=== PATIENT | female | born 1965 | race American Indian/Alaskan Native ===

== ENCOUNTER 2016-08-06 05:25 | Emergency (ER) | payer OTHER ==
[2016-08-06] MEDS ORDERED: DILAUDID IV ONE (07:29)
--- NOTE | 2016-08-06 07:42 | Emergency Department Report ---
ED Abdominal Pain HPI - General Chief Complaint: Abdominal Pain Stated Complaint: MASS ON ABDOMEN Time Seen by Provider: 08/06/16 06:12 Source: patient, EMS Mode of arrival: Stretcher Limitations: No Limitations - History of Present Illness Initial Comments: 51-year-old female presents to the emergency department complaining of abdominal pain and a draining wound on her abdomen. Patient has been having abdominal pain for several years. She was diagnosed with uterine fibroids. She has an trying to schedule surgery to have this removed. She saw her [facility] 3 days ago and was diagnosed with an abscess on her abdominal wall. She was prescribed Bactrim. Patient states that she awoke this morning with drainage coming from the site. Patient describes sharp pain in her left lower abdomen that does not radiate. She states that she had fever 2 days ago but none at this time. There are no other complaints. MD Complaint: abdominal pain -: Gradual, year(s) Location: LLQ Radiation: none Severity: moderate Severity scale (0 -10): 7 Quality: aching, sharp Consistency: constant Improves With: nothing Worsens With: nothing Context: recent antibiotic use - Related Data Previous Rx's Medication Instructions Recorded Last Taken Type Acetaminophen/Codeine 1 tab PO Q6H PRN #30 tab 03/05/14 Unknown Rx [Acetaminophen-Codeine #3 TAB] Ibuprofen [Motrin] 800 mg PO TID PRN #60 tablet 03/05/14 Unknown Rx metroNIDAZOLE [Flagyl] 500 mg PO Q8HR #20 tablet 03/05/14 Unknown Rx Ciprofloxacin HCl [Ciprofloxacin 500 mg PO Q12H #14 tab 07/21/16 Unknown Rx TAB] oxyCODONE /ACETAMINOPHEN [Percocet 1 tab PO ONCE PRN #25 tablet 07/21/16 Unknown Rx 5/325 mg] Allergies Allergy/AdvReac Type Severity Reaction Status Date / Time No Known Allergies Allergy Verified 03/05/14 01:49 ED Review of Systems ROS: Stated complaint: MASS ON ABDOMEN Other details as noted in HPI Comment: All other systems reviewed and negative Gastrointestinal: abdominal pain Skin: as per HPI (abdominal wall abscess) ED Past Medical Hx - Past Medical History Previous Medical History?: No - Surgical History Past Surgical History?: Yes Additional Surgical History: x1 - Family History Family history: no significant - Social History Smoking Status: Never Smoker Substance Use Type: None - Medications Home Medications: Home Medications Medication Instructions Recorded Confirmed Last Taken Type Acetaminophen/Codeine 1 tab PO Q6H PRN #30 tab 03/05/14 Unknown Rx [Acetaminophen-Codeine #3 TAB] Ibuprofen [Motrin] 800 mg PO TID PRN #60 tablet 03/05/14 Unknown Rx metroNIDAZOLE [Flagyl] 500 mg PO Q8HR #20 tablet 03/05/14 Unknown Rx Ciprofloxacin HCl [Ciprofloxacin 500 mg PO Q12H #14 tab 07/21/16 Unknown Rx TAB] oxyCODONE /ACETAMINOPHEN [Percocet 1 tab PO ONCE PRN #25 tablet 07/21/16 Unknown Rx 5/325 mg] ED Physical Exam - General Limitations: No Limitations General appearance: alert, in no apparent distress - Head Head exam: Present: atraumatic, normocephalic - Eye Eye exam: Present: normal appearance, PERRL, EOMI - ENT ENT exam: Present: normal exam, normal orophraynx, mucous membranes moist - Neck Neck exam: Present: normal inspection, full ROM. Absent: tenderness - Respiratory Respiratory exam: Present: normal lung sounds bilaterally. Absent: respiratory distress - Cardiovascular Cardiovascular Exam: Present: regular rate, normal rhythm, normal heart sounds - GI/Abdominal GI/Abdominal exam: Present: soft, tenderness (moderate tenderness to palpation in the left lower quadrant), normal bowel sounds. Absent: distended, guarding, rebound - Extremities Exam Extremities exam: Present: normal inspection, full ROM. Absent: tenderness - Back Exam Back exam: Present: normal inspection, full ROM. Absent: tenderness - Neurological Exam Neurological exam: Present: alert, oriented X3. Absent: motor sensory deficit - Skin Skin exam: Present: warm, dry, other (over the left anterior lower abdominal wall there appears to be an abscess that is currently draining purulent material. Erythema extends around the draining site with induration. The affected area measures approximately 12 cm x 15 cm in greatest dimension.) ED Course Vital Signs 08/06/16 08/06/16 08/06/16 05:31 05:38 06:00 Temperature 98.7 F Pulse Rate 93 H Respiratory 15 18 15 Rate Blood Pressure 157/84 150/83 O2 Sat by Pulse 97 96 92 Oximetry 08/06/16 06:30 Temperature Pulse Rate Respiratory 15 Rate Blood Pressure 140/83 O2 Sat by Pulse 91 Oximetry - Reevaluation(s) Reevaluation #1: 08/06/16 07:42 Manual compression of the abdominal abscess was performed due to the already draining abscess. No incision was performed. A moderate amount of purulent material was expressed. Obtaining labs and giving IV Ancef. ED Medical Decision Making - Lab Data Result diagrams: 08/06/16 07:29 08/06/16 07:29 - Medical Decision Making Laboratory results reviewed and discussed with the patient. Patient reports feeling much better following IV pain medication. Patient will be discharged home at this time to follow up with her [facility] doctor later today. Patient is to continue her oral Bactrim and home pain medication. - Differential Diagnosis abdominal wall abscess Critical care attestation.: If time is entered above; I have spent that time in minutes in the direct care of this critically ill patient, excluding procedure time. ED Disposition Clinical Impression: Abscess of abdominal wall Disposition: DISCHARGED TO HOME OR SELFCARE Is pt being admited?: No Condition: Stable Instructions: Abscess Incision and Drainage (ED) Referrals: [facility] [Provider Group] - [place] Time of Disposition: 08:40
[2016-08-06 07:55] LABS: Basophils % (Auto) 0.4 % (0.0-1.8); Eosinophils % (Auto) 0.3 % (0.0-4.3); Hematocrit 32.5 % (30.3-42.9); Hemoglobin 10.2 gm/dl (10.1-14.3); Mean Corpuscular HGB Conc 31 % (30-34); Mean Corpuscular Hemoglobin 26 pg (28-32); Mean Corpuscular Volume 84 fl (79-97); Platelet Count 420 K/mm3 (140-440); Red Blood Count 3.87 M/mm3 (3.65-5.03); Red Cell Distribution Width 14.6 % (13.2-15.2); White Blood Count 11.7 K/mm3 (4.5-11.0)
[2016-08-06] MEDS ORDERED: ceFAZolin 2 GM in NACL 0.9% 100 ML IV ONE ×2 (08:00→09:00)
[2016-08-06 08:01] LABS: Bacteria,Urine 1+ /HPF (Negative); Bilirubin,Urine NEG (Negative); Blood,Urine LG (Negative); Ketones,Urine NEG (Negative); Leukocyte Esterase,Urine MOD (Negative); Mucus,Urine FEW /HPF; Nitrite,Urine NEG (Negative)
[2016-08-06 08:04] LABS: Anion Gap 19 mmol/L; Blood Urea Nitrogen 10 mg/dL (7-17); Carbon Dioxide 20 mmol/L (22-30); Chloride 99.8 mmol/L (98-107); Glucose 87 mg/dL (65-100); Potassium 4.2 mmol/L (3.6-5.0); Sodium 135 mmol/L (137-145)
[2016-08-06 08:09] LABS: RBC,Urine > 182.0 /HPF (0.0-6.0); WBC,Urine > 182.0 /HPF (0.0-6.0)
[2016-08-06 10:03] VITALS: BP 152/82
== END 2016-08-06 10:06 | disposition home or self-care (01) ==
LOC: ED 05:25
DX: L02.211 Cutaneous abscess of abdominal wall (principal)
CPT/HCPCS: 36415; 80048; 81001; 85025; 87116; 96365; 96375; 99284; J0690; J1170